=== PATIENT | female | born 1955 | race Caucasian/White ===

== ENCOUNTER 2016-06-20 15:42 | Inpatient (IN) | payer OTHER ==
[2016-06-20 18:12] VITALS: BMI 19.3
[2016-06-20] MEDS ORDERED: P-EPHED 60MG/TRIPROLIDI 2.5MG TABLET PO PRN (19:16)
[2016-06-20] MEDS ORDERED: MAGNESIUM HYDROX 2400MG/30ML ORAL SUSPENSION 30 ML CUP PO PRN (19:16)
[2016-06-20] MEDS ORDERED: LOPERAMIDE HCL 2 MG CAPSULE PO PRN (19:16)
[2016-06-20] MEDS ORDERED: chlordiazePOXIDE HCL 25 MG CAPSULE PO PRN (19:16)
[2016-06-20] MEDS ORDERED: guaiFENesin/D-METHORPHAN HB 10 ML UNIT-DOSE CUPS PO PRN (19:16)
[2016-06-20] MEDS ORDERED: ACETAMINOPHEN 325 MG TABLET (FP) PO PRN (19:16)
[2016-06-20] MEDS ORDERED: NICOTINE POLACRILEX 2 MG GUM BUC PRN (19:16)
[2016-06-20] MEDS ORDERED: IBUPROFEN 400 MG TABLET (FP) PO PRN (19:16)
[2016-06-20] MEDS ORDERED: MENTHOL/PHENOL 1 EACH UD MM PRN (19:16)
[2016-06-20] MEDS ORDERED: chlordiazePOXIDE HCL 25 MG CAPSULE PO ONE (19:16)
[2016-06-20] MEDS ORDERED: MAG HYDROX/AL HYDROX/SIMETH 30 ML UNIT-DOSE CUP PO PRN (19:16)
[2016-06-20] MEDS ORDERED: MAGNESIUM CITRATE 300 ML BOTTLE PO PRN (19:16)
--- NOTE | 2016-06-20 19:16 | HP ---
CIWA Score - CIWA Score Nausea/Vomitin-Mild Nausea/No Vomiting Muscle Tremors: 4-Moderate,w/Arms Extend Anxiety: 4-Mod. Anxious/Guarded Agitation: 4-Moderately Restless Paroxysmal Sweats: 1-Minimal Palms Moist Orientation: 2-Disoriented Date<2 days Tacttile Disturbances: 0-None Auditory Disturbances: 0-None Visual Disturbances: 0-None Headache: 0-None Present CIWA-Ar Total Score: 16 Admission ROS S - HPI Chief Complaint: WITHDRAWAL SX Allergies/Adverse Reactions: Allergies Allergy/AdvReac Type Severity Reaction Status Date / Time Penicillins Allergy Severe Hives Verified 06/20/16 18:26 History of Present Illness: 60 YEARS OLD FEMALE WITH LONG HISTORY OF ALCOHOL NICOTINE DEPENDENCE, DENIES MEDICAL ISSUE DENIES MENTAL ILLNESS IS ADMITTED TO DETOX Exam Limitations: No Limitations - Ebola screening Have you traveled outside of the country in the last 21 days: No Have you had contact with anyone from an Ebola affected area: No Have you been sick,other than usual withdrawal symptoms: No Do you have a fever: No - Review of Systems Constitutional: Chills, Loss of Appetite, Unintentional Wgt. Loss, Unexplained wgt Loss EENT: reports: No Symptoms Reported Respiratory: reports: No Symptoms reported Cardiac: reports: No Symptoms Reported GI: reports: Nausea, Poor Appetite, Poor Fluid Intake, Abdominal cramping : reports: No Symptoms Reported Musculoskeletal: reports: No Symptoms Reported Integumentary: reports: Pruritus Neuro: reports: Tremors Endocrine: reports: No Symptoms Reported Hematology: reports: No Symptoms Reported Psychiatric: reports: Judgement Intact, Mood/Affect Appropiate Other Systems: Reviewed and Negative Patient History - Patient Medical History Hx Anemia: No Hx Asthma: No Hx Chronic Obstructive Pulmonary Disease (COPD): No Hx Cancer: No Hx Cardiac Disorders: No Hx Congestive Heart Failure: No Hx Hypertension: No Hx Hypercholesterolemia: No Hx Pacemaker: No HX Cerebrovascular Accident: No Hx Seizures: No Hx Dementia: No Hx Diabetes: No Hx Gastrointestinal Disorders: No Hx Liver Disease: No Hx Genitourinary Disorders: No Hx Sexually Transmitted Disorders: No Hx Renal Disease (ESRD): No Hx Thyroid Disease: No Hx Human Immunodeficiency Virus (HIV): No (last 2010 negative) Hx Hepatitis C: No Hx Depression: No Hx Suicide Attempt: No Hx Bipolar Disorder: No Hx Schizophrenia: No - Patient Surgical History Past Surgical History: Yes Hx Neurologic Surgery: No Hx Cataract Extraction: No Hx Cardiac Surgery: No Hx Lung Surgery: No Hx Breast Surgery: No Hx Breast Biopsy: No Hx Abdominal Surgery: No Hx Appendectomy: No Hx Cholecystectomy: No Hx Genitourinary Surgery: No Hx Section: Yes (X2) Hx Orthopedic Surgery: No Hx Hysterectomy: No Anesthesia Reaction: No - PPD History Previous Implant?: Yes Documented Results: Negative w/proof Implanted On Prior [facility] Admission?: Yes Date: 03/03/16 Results: 0 mm PPD to be Administered?: No - Reproductive History Patient is a Female of Child Bearing Age (11 -55 yrs old): No Patient : No - Smoking Cessation Smoking history: Current every day smoker Have you smoked in the past 12 months: Yes Aproximately how many cigarettes per day: 10 Cigars Per Day: 0 Hx Chewing Tobacco Use: No Initiated information on smoking cessation: Yes 'Breaking Loose' booklet given: 06/20/16 - Substance & Tx. History Hx Alcohol Use: Yes Hx Substance Use: No Substance Use Type: Alcohol Hx Substance Use Treatment: Yes - Substances Abused Alcohol Route: Oral Frequency: Daily Amount used: VODKA 1 PINT Age of first use: 16 Date of Last Use: 06/20/16 Family Disease History - Family Disease History Family Disease History: CA: Father (), Other: Mother ( ALCOHOL) Admission Physical Exam S - Vital Signs Vital Signs: Vital Signs - 24 hr 06/20/16 18:11 Temperature 97.2 F L Pulse Rate 94 H Respiratory 20 Rate Blood Pressure 145/82 - Physical General Appearance: Yes: Appropriately Dressed, Alcohol on Breath, Thin, Tremorous, Irritable, Sweating, Anxious HEENTM: Yes: Hearing grossly Normal, Normal ENT Inspection, Normocephalic, Normal Voice Respiratory: Yes: Chest Non-Tender, Lungs Clear, Normal Breath Sounds, No Respiratory Distress, No Accessory Muscle Use Neck: Yes: Supple, Trachea in good position Breast: Yes: Breasts Symetrical Cardiology: Yes: Regular Rhythm, S1, S2, Tachycardia Abdominal: Yes: Non Tender, Soft Genitourinary: Yes: Within Normal Limits Back: Yes: Normal Inspection Musculoskeletal: Yes: full range of Motion, Gait Steady Extremities: Yes: Normal Range of Motion, Non-Tender, Tremors Neurological: Yes: Alert, Motor Strength 5/5, Normal Mood/Affect, Normal Response Integumentary: Yes: Warm, Erythema (LEFT LEG) Lymphatic: Yes: Within Normal Limits - Diagnostic (1) Alcohol dependence with uncomplicated withdrawal Current Visit: Yes Status: Acute (2) Nicotine dependence Current Visit: Yes Status: Acute Qualifiers: Nicotine product type: cigarettes Substance use status: in withdrawal Qualified Code(s): F17.213 - Nicotine dependence, cigarettes, with withdrawal (3) Weight loss Current Visit: Yes Status: Acute (4) Abrasion Current Visit: Yes Status: Acute Comment: LEFT LEG Cleared for Admission S - Detox or Rehab [facility] Level of Care: Medically Managed Detox Regimen/Protocol: Librium [facility] Breath Alcohol Content Breath Alcohol Content: 0.060 Urine Pregancy Test - Result Urine Test Results: Negative- NO Line Present Urine Drug Screen - Results Drug Screen Negative: Yes
[2016-06-20] MEDS: chlordiazePOXIDE HCL 25 MG CAPSULE PO SCH (22:45)
[2016-06-20] MEDS: THIAMINE HCL 100 MG TABLET (FP) PO SCH (22:45)
[2016-06-20] MEDS: diphenhydrAMINE HCL 50 MG CAPSULE PO PRN (22:48)
[2016-06-21] MEDS: chlordiazePOXIDE HCL 25 MG CAPSULE PO SCH ×4 (05:51→22:41)
[2016-06-21 09:57] LABS: URINE APPEARANCE SLCLOUDY; URINE BILIRUBIN NEGATIVE (NEGATIVE); URINE BLOOD NEGATIVE (NEGATIVE); URINE COLOR YELLOW; URINE GLUCOSE (UA) NEGATIVE (NEGATIVE); URINE KETONE NEGATIVE (NEGATIVE); URINE NITRITE NEGATIVE (NEGATIVE); URINE PROTEIN NEGATIVE (NEGATIVE); URINE UROBILINOGEN NEGATIVE E.U./dl (0.2-1.0)
[2016-06-21 09:58] LABS: URINE LEUK ESTERASE 2+ (NEGATIVE)
[2016-06-21 10:04] LABS: MCH 34.1 pg (25.7-33.7); MCHC 34.3 g/dl (32.0-36.0); MEAN CELL VOLUME 99.6 fl (80-96); MEAN PLT VOLUME 6.5 fl (7.5-11.1); PLATELET COUNT 189 K/MM3 (134-434); RDW 14.6 % (11.6-15.6); WHITE BLOOD COUNT 4.9 K/mm3 (4.0-10.0)
[2016-06-21 10:12] LABS: ALBUMIN 3.6 g/dl (3.4-5.0); BILIRUBIN,TOTAL 0.8 mg/dL (0.2-1.0); CALCIUM 9.1 mg/dL (8.5-10.1); CREATININE 1.7 mg/dL (0.55-1.02); TOT PROT 6.6 g/dl (6.4-8.2)
[2016-06-21 10:14] LABS: URINE BACTERIA RARE /hpf (NONE SEEN); URINE HYALINE CAST 19 /lpf; URINE MUCUS RARE; URINE RBC 5 /hpf (0-3); URINE WBC 36 /hpf (3-5)
[2016-06-21] MEDS: PRENATAL VITAMINS W/ FOLIC ACID TABLET (FP) PO SCH (10:37)
[2016-06-21] MEDS: NICOTINE 14 MG/24 HOURS TOPICAL PATCH TD SCH (10:38)
--- NOTE | 2016-06-21 12:20 | PN ---
S CIWA - CIWA Score Nausea/Vomitin Muscle Tremors: 3 Anxiety: 3 Agitation: 2 Paroxysmal Sweats: 3 Orientation: 0-Oriented Tacttile Disturbances: 2-Mild Itch/Numbness/Burn Auditory Disturbances: 0-None Visual Disturbances: 0-None Headache: 0-None Present CIWA-Ar Total Score: 15 BHS Progress Note (SOAP) Subjective: interrupted sleep, sweats, shakes Objective: 06/21/16 12:19 Vital Signs Temperature 98.1 F 06/21/16 10:19 Pulse Rate 79 06/21/16 10:19 Respiratory Rate 20 06/21/16 10:19 Blood Pressure 118/64 06/21/16 10:19 O2 Sat by Pulse Oximetry (%) Laboratory Tests 06/21/16 06/21/16 06/21/16 06:30 07:00 08:30 WBC 4.9 RBC 3.08 L Hgb 10.5 L Hct 30.6 L MCV 99.6 H MCHC 34.3 RDW 14.6 D Plt Count 189 D MPV 6.5 L D Sodium 140 Potassium 4.3 Chloride 107 Carbon Dioxide 23 Anion Gap 10 BUN 36 H D Creatinine 1.7 H D Creat Clearance w eGFR 30.87 Random Glucose 111 H Calcium 9.1 Total Bilirubin 0.8 D AST 47 H D ALT 27 D Alkaline Phosphatase 116 D Total Protein 6.6 Albumin 3.6 Urine Color Yellow Urine Appearance Slcloudy Urine pH 6.0 Ur Specific [place] 1.016 Urine Protein Negative Urine Glucose (UA) Negative Urine Ketones Negative Urine Blood Negative Urine Nitrite Negative Urine Bilirubin Negative Urine Urobilinogen Negative Ur Leukocyte Esterase 2+ H Urine RBC 5 Urine WBC 36 Ur Epithelial Cells Few Urine Bacteria Rare Hyaline Casts 19 Urine Mucus Rare pt aox3 in nad ambulating Assessment: 06/21/16 12:20 withdrawal sxs Plan: cont. detox increase fluids
--- NOTE | 2016-06-21 12:54 | EKG ---
Test Reason : Blood Pressure : / mmHG Vent. Rate : 094 BPM Atrial Rate : 094 BPM P-R Int : 162 ms QRS Dur : 074 ms QT Int : 378 ms P-R-T Axes : 066 056 067 degrees QTc Int : 472 ms NORMAL SINUS RHYTHM NORMAL ECG NO PREVIOUS ECGS AVAILABLE Confirmed by SUMI SALAZAR, CIRA ([id number]) on 06/21/2016 12:53:32 PM Referred By: Bal Faith Confirmed By:CIRA JONAS MD
[2016-06-21] MEDS: THIAMINE HCL 100 MG TABLET (FP) PO SCH (22:41)
[2016-06-21] MEDS: diphenhydrAMINE HCL 50 MG CAPSULE PO PRN (22:41)
[2016-06-22] MEDS: chlordiazePOXIDE HCL 25 MG CAPSULE PO SCH ×3 (05:34→17:53)
[2016-06-22] MEDS: PRENATAL VITAMINS W/ FOLIC ACID TABLET (FP) PO SCH (10:26)
[2016-06-22] MEDS: NICOTINE 14 MG/24 HOURS TOPICAL PATCH TD SCH (10:27)
--- NOTE | 2016-06-22 10:58 | PN ---
[facility] CIWA - CIWA Score Nausea/Vomitin-No Nausea/No Vomiting Muscle Tremors: 4-Moderate,w/Arms Extend Anxiety: 3 Agitation: 3 Paroxysmal Sweats: 3 Orientation: 0-Oriented Tacttile Disturbances: 0-None Auditory Disturbances: 0-None Visual Disturbances: 0-None Headache: 0-None Present CIWA-Ar Total Score: 13 S Progress Note (SOAP) Subjective: sweats shakes interrupted sleep agitation anxiety Objective: 06/22/16 10:57 Vital Signs Temperature 97.7 F 06/22/16 09:51 Pulse Rate 80 06/22/16 09:51 Respiratory Rate 16 06/22/16 09:51 Blood Pressure 127/78 06/22/16 09:51 O2 Sat by Pulse Oximetry (%) Laboratory Tests 06/20/16 06/21/16 06/21/16 07:00 06:30 07:00 WBC 4.9 RBC 3.08 L Hgb 10.5 L Hct 30.6 L MCV 99.6 H MCHC 34.3 RDW 14.6 D Plt Count 189 D MPV 6.5 L D Sodium 140 Potassium 4.3 Chloride 107 Carbon Dioxide 23 Anion Gap 10 BUN 36 H D Creatinine 1.7 H D Creat Clearance w eGFR 30.87 Random Glucose 111 H Calcium 9.1 Total Bilirubin 0.8 D AST 47 H D ALT 27 D Alkaline Phosphatase 116 D Total Protein 6.6 Albumin 3.6 Urine Color Urine Appearance Urine pH Ur Specific [place] Urine Protein Urine Glucose (UA) Urine Ketones Urine Blood Urine Nitrite Urine Bilirubin Urine Urobilinogen Ur Leukocyte Esterase Urine RBC Urine WBC Ur Epithelial Cells Urine Bacteria Hyaline Casts Urine Mucus RPR Titer Hepatitis C Antibody 0.1 06/21/16 06/21/16 07:00 08:30 WBC RBC Hgb Hct MCV MCHC RDW Plt Count MPV Sodium Potassium Chloride Carbon Dioxide Anion Gap BUN Creatinine Creat Clearance w eGFR Random Glucose Calcium Total Bilirubin AST ALT Alkaline Phosphatase Total Protein Albumin Urine Color Yellow Urine Appearance Slcloudy Urine pH 6.0 Ur Specific [place] 1.016 Urine Protein Negative Urine Glucose (UA) Negative Urine Ketones Negative Urine Blood Negative Urine Nitrite Negative Urine Bilirubin Negative Urine Urobilinogen Negative Ur Leukocyte Esterase 2+ H Urine RBC 5 Urine WBC 36 Ur Epithelial Cells Few Urine Bacteria Rare Hyaline Casts 19 Urine Mucus Rare RPR Titer Nonreactive Hepatitis C Antibody awake/alert ambulating no acute distress Assessment: 06/22/16 10:58 withdrawal sx Plan: continue detox increase fluids
[2016-06-22] MEDS: chlordiazePOXIDE 5 MG CAPSULE PO SCH (22:21)
[2016-06-22] MEDS: THIAMINE HCL 100 MG TABLET (FP) PO SCH (22:21)
[2016-06-22] MEDS: hydrOXYzine PAMOATE 50 MG CAPSULE (FP) PO PRN (22:22)
[2016-06-23] MEDS: chlordiazePOXIDE 5 MG CAPSULE PO SCH ×3 (05:28→18:11)
[2016-06-23] MEDS: NICOTINE 14 MG/24 HOURS TOPICAL PATCH TD SCH (10:51)
[2016-06-23] MEDS: PRENATAL VITAMINS W/ FOLIC ACID TABLET (FP) PO SCH (10:52)
--- NOTE | 2016-06-23 11:25 | PN ---
BHS Progress Note (SOAP) Subjective: sweats irritable Objective: 06/23/16 11:25 Vital Signs Temperature 97.9 F 06/23/16 10:00 Pulse Rate 84 06/23/16 10:00 Respiratory Rate 16 06/23/16 10:00 Blood Pressure 98/69 06/23/16 10:00 O2 Sat by Pulse Oximetry (%) awake/alert ambulating no acute distress Assessment: 06/23/16 11:25 withdrawal sx Plan: continue detox increase fluids d/c in am
[2016-06-23] MEDS: hydrOXYzine PAMOATE 50 MG CAPSULE (FP) PO PRN (22:40)
[2016-06-23] MEDS: THIAMINE HCL 100 MG TABLET (FP) PO SCH (22:40)
[2016-06-23] MEDS: chlordiazePOXIDE HCL 10 MG CAPSULE PO SCH (22:40)
[2016-06-24] MEDS: chlordiazePOXIDE HCL 10 MG CAPSULE PO SCH ×2 (06:45→10:55)
[2016-06-24 08:05] VITALS: TEMP 97.7
--- NOTE | 2016-06-24 10:26 | DS ---
[facility] Detox Discharge Summary Admission Date: 06/20/16 Discharge Date: 06/24/16 - History Present History: Alcohol Dependence Pertinent Past History: weight loss - Physical Exam Results Vital Signs: Vital Signs Temperature 97.7 F 06/24/16 06:00 Pulse Rate 65 06/24/16 06:00 Respiratory Rate 18 06/24/16 06:00 Blood Pressure 126/66 06/24/16 06:00 O2 Sat by Pulse Oximetry (%) Pertinent Admission Physical Exam Findings: Withdrawal sx. Laboratory Last Values WBC 4.9 K/mm3 (4.0-10.0) 06/21/16 06:30 RBC 3.08 M/mm3 (3.60-5.2) L 06/21/16 06:30 Hgb 10.5 GM/dL (10.7-15.3) L 06/21/16 06:30 Hct 30.6 % (32.4-45.2) L 06/21/16 06:30 MCV 99.6 fl (80-96) H 06/21/16 06:30 MCHC 34.3 g/dl (32.0-36.0) 06/21/16 06:30 RDW 14.6 % (11.6-15.6) D 06/21/16 06:30 Plt Count 189 K/MM3 (134-434) D 06/21/16 06:30 MPV 6.5 fl (7.5-11.1) L D 06/21/16 06:30 Sodium 140 mmol/L (136-145) 06/21/16 07:00 Potassium 4.3 mmol/L (3.5-5.1) 06/21/16 07:00 Chloride 107 mmol/L (98-107) 06/21/16 07:00 Carbon Dioxide 23 mmol/L (21-32) 06/21/16 07:00 Anion Gap 10 (8-16) 06/21/16 07:00 BUN 36 mg/dL (7-18) H D 06/21/16 07:00 Creatinine 1.7 mg/dL (0.55-1.02) H D 06/21/16 07:00 Creat Clearance w eGFR 30.87 (>60) 06/21/16 07:00 Random Glucose 111 mg/dL (74-106) H 06/21/16 07:00 Calcium 9.1 mg/dL (8.5-10.1) 06/21/16 07:00 Total Bilirubin 0.8 mg/dL (0.2-1.0) D 06/21/16 07:00 AST 47 U/L (15-37) H D 06/21/16 07:00 ALT 27 U/L (12-78) D 06/21/16 07:00 Alkaline Phosphatase 116 U/L (45-117) D 06/21/16 07:00 Total Protein 6.6 g/dl (6.4-8.2) 06/21/16 07:00 Albumin 3.6 g/dl (3.4-5.0) 06/21/16 07:00 Urine Color Yellow 06/21/16 08:30 Urine Appearance Slcloudy 06/21/16 08:30 Urine pH 6.0 (5.0-8.0) 06/21/16 08:30 Ur Specific [place] 1.016 (1.001-1.035) 06/21/16 08:30 Urine Protein Negative (NEGATIVE) 06/21/16 08:30 Urine Glucose (UA) Negative (NEGATIVE) 06/21/16 08:30 Urine Ketones Negative (NEGATIVE) 06/21/16 08:30 Urine Blood Negative (NEGATIVE) 06/21/16 08:30 Urine Nitrite Negative (NEGATIVE) 06/21/16 08:30 Urine Bilirubin Negative (NEGATIVE) 06/21/16 08:30 Urine Urobilinogen Negative E.U./dl (0.2-1.0) 06/21/16 08:30 Ur Leukocyte Esterase 2+ (NEGATIVE) H 06/21/16 08:30 Urine RBC 5 /hpf (0-3) 06/21/16 08:30 Urine WBC 36 /hpf (3-5) 06/21/16 08:30 Ur Epithelial Cells Few /hpf (FEW) 06/21/16 08:30 Urine Bacteria Rare /hpf (NONE SEEN) 06/21/16 08:30 Hyaline Casts 19 /lpf 06/21/16 08:30 Urine Mucus Rare 06/21/16 08:30 RPR Titer Nonreactive (NONREACTIVE) 06/21/16 07:00 Hepatitis C Antibody 0.1 s/co ratio (0.0-0.9) 06/20/16 07:00 labs noted - Treatment Hospital Course: Detox Protocol Followed, Detoxed Safely, Responded well, Discharged Condition Good, Rehab Referral Accepted Patient has Accepted a Rehab Referral to: [facility] - Medication Discharge Medications: Ambulatory Orders NK [No Known Home Medication] 03/01/16 - Diagnosis (1) Alcohol dependence with uncomplicated withdrawal Current Visit: Yes Status: Acute (2) Nicotine dependence Current Visit: Yes Status: Acute Qualifiers: Nicotine product type: cigarettes Substance use status: in withdrawal Qualified Code(s): F17.213 - Nicotine dependence, cigarettes, with withdrawal - AMA Did Patient Leave Against Medical Advice: No
[2016-06-24] MEDS: NICOTINE 14 MG/24 HOURS TOPICAL PATCH TD SCH (10:54)
[2016-06-24] MEDS: PRENATAL VITAMINS W/ FOLIC ACID TABLET (FP) PO SCH (10:54)
[2016-06-24 11:40] VITALS: BP 125/78; PULSE 76
== END 2016-06-24 12:24 | disposition other institution (70) | DRG 775 ==
LOC: YASAS 15:42 → Y6N 18:51
PROVIDERS: ADMIT Internal Medicine Addiction Medicine; ATTEND Internal Medicine Addiction Medicine
PROC: HZ2ZZZZ Detoxification Services for Substance Abuse Treatment (ICD-10-PCS; principal; 2016-06-24)
DX: F10.230 Alcohol dependence with withdrawal, uncomplicated (principal); F17.210 Nicotine dependence, cigarettes, uncomplicated; L29.9 Pruritus, unspecified; S80.812A Abrasion, left lower leg, initial encounter; X58.XXXA Exposure to other specified factors, initial encounter; Y93.9 Activity, unspecified; Y92.9 Unspecified place or not applicable; R63.4 Abnormal weight loss; Z68.1 Body mass index [BMI] 19.9 or less, adult
CPT/HCPCS: 36415; 80053; 81003; 81015; 85027; 86593; 93005; 93010

== ENCOUNTER 2016-06-24 13:04 | Inpatient (IN) | payer OTHER ==
[2016-06-24 13:23] VITALS: BMI 23.8
[2016-06-24] MEDS ORDERED: MAG HYDROX/AL HYDROX/SIMETH 30 ML UNIT-DOSE CUP PO PRN (14:22)
[2016-06-24] MEDS ORDERED: LOPERAMIDE HCL 2 MG CAPSULE PO PRN (14:22)
[2016-06-24] MEDS ORDERED: MAGNESIUM CITRATE 300 ML BOTTLE PO PRN (14:22)
[2016-06-24] MEDS ORDERED: ACETAMINOPHEN 325 MG TABLET (FP) PO PRN (14:22)
[2016-06-24] MEDS ORDERED: IBUPROFEN 400 MG TABLET (FP) PO PRN (14:22)
[2016-06-24] MEDS ORDERED: MAGNESIUM HYDROX 2400MG/30ML ORAL SUSPENSION 30 ML CUP PO PRN (14:22)
--- NOTE | 2016-06-24 14:23 | HP ---
MARIANNE SALAZAR Rehab Assess/Revision - Admission History Admitted to Rehab from: [facility] [place] Date of Admission to Rehab: 06/24/16 - Vital signs Vital Signs: Vital Signs Period Temp Pulse Resp BP Sys/[place] Pulse Ox Last 24 Hr 97.7 F 88 20 111/79 - Findings Detox History & Physical reviewed: Yes Concur with findings: Yes
[2016-06-24] MEDS ORDERED: diphenhydrAMINE HCL 50 MG CAPSULE PO PRN (22:00)
[2016-06-24] MEDS: hydrOXYzine PAMOATE 25 MG CAPSULE (FP) PO PRN (22:06)
[2016-06-24] MEDS: THIAMINE HCL 100 MG TABLET (FP) PO SCH (22:06)
[2016-06-25] MEDS: PRENATAL VITAMINS W/ FOLIC ACID TABLET (FP) PO SCH (09:40)
[2016-06-25] MEDS: NICOTINE 21 MG/24 HOURS TOPICAL PATCH TD SCH (09:40)
[2016-06-25 11:49] LABS: HIV 1 & 2 AB NEGATIVE; HIV 1 AGp24 NEGATIVE
[2016-06-25] MEDS: hydrOXYzine PAMOATE 25 MG CAPSULE (FP) PO PRN (20:02)
[2016-06-25] MEDS: THIAMINE HCL 100 MG TABLET (FP) PO SCH (21:10)
[2016-06-26] MEDS: hydrOXYzine PAMOATE 25 MG CAPSULE (FP) PO PRN ×3 (00:29→22:18)
--- NOTE | 2016-06-26 06:59 | HP ---
Psychiatrist Admission - Data Date of interview: 06/26/16 Admission source: 6N Identifying data: This is the first [facility] admission for this 60 years old female, mother of 2 children, unemployed on public assistance, living in supportive housing seeking rehab treatment for alcohol Medical History: Significant for S/P X2 Psychiatric History: Denies history of previous psychiatric treatment Physical/Sexual Abuse/Trauma History: Denies emotional, physical, sexual as well as DV relationship Additional Comment: Reports history of 2 previous arrestsincluding one felony conviction. Denies being on probation/parole at present Vital Signs: Vital Signs - 24 hr 06/26/16 06/26/16 03:28 06:53 Temperature 97.8 F Pulse Rate 86 Respiratory 16 18 Rate Blood Pressure 110/69 Allergies/Adverse Reactions: Allergies Allergy/AdvReac Type Severity Reaction Status Date / Time Penicillins Allergy Severe Hives Verified 06/24/16 13:10 Date of last physical exam: 06/24/16 Concur with the findings of this exam: Yes - Substance Abuse/Tx History Hx Alcohol Use: Yes Hx Substance Use: No Substance Use Type: Alcohol (Started drinking alcohol at age 60, consumes one pint of vodka daily. Last drink on 06/20/16) Hx Substance Use Treatment: Yes (4 previous inpt detox and 3 inpt rehab) - Admission Criteria Previous failed treatment: No Poor recovery environment: Yes Comorbidities: Yes Lacks judgement: Yes Mental Status Exam - Mental Status Exam Alert and Oriented to: Time, Place, Person Cognitive Function: Fair Patient Appearance: Well Groomed Mood: Hopeful, Euthymic Patient Behavior: Cooperative Speech Pattern: Clear Voice Loudness: Normal Thought Process: Intact Thought Disorder: Not Present Hallucinations: Denies Suicidal Ideation: Denies Homicidal Ideation: Denies Insight/Judgement: Fair Sleep: Well Appetite: Good Muscle strength/Tone: Normal Gait/Station: Normal Psychiatric Findings - Problem List ([place] 1, 2,3) (1) Alcohol dependence with uncomplicated withdrawal Current Visit: No Status: Acute (2) Nicotine dependence Current Visit: No Status: Acute Qualifiers: Nicotine product type: cigarettes Substance use status: in withdrawal Qualified Code(s): F17.213 - Nicotine dependence, cigarettes, with withdrawal - Initial Treatment Plan Initial Treatment Plan: Monitor progress
[2016-06-26] MEDS: NICOTINE 21 MG/24 HOURS TOPICAL PATCH TD SCH (10:04)
[2016-06-26] MEDS: PRENATAL VITAMINS W/ FOLIC ACID TABLET (FP) PO SCH (10:04)
[2016-06-26] MEDS: THIAMINE HCL 100 MG TABLET (FP) PO SCH (21:40)
[2016-06-27] MEDS: hydrOXYzine PAMOATE 25 MG CAPSULE (FP) PO PRN ×3 (02:42→21:22)
[2016-06-27] MEDS: P-EPHED 60MG/TRIPROLIDI 2.5MG TABLET PO PRN ×3 (07:39→21:22)
[2016-06-27] MEDS: guaiFENesin/D-METHORPHAN HB 10 ML UNIT-DOSE CUPS PO PRN ×3 (07:39→21:23)
[2016-06-27] MEDS: PRENATAL VITAMINS W/ FOLIC ACID TABLET (FP) PO SCH (09:58)
[2016-06-27] MEDS: NICOTINE 21 MG/24 HOURS TOPICAL PATCH TD SCH (09:58)
[2016-06-27] MEDS: MENTHOL/PHENOL 1 EACH UD MM PRN (21:22)
[2016-06-27] MEDS: THIAMINE HCL 100 MG TABLET (FP) PO SCH (21:22)
[2016-06-28] MEDS: P-EPHED 60MG/TRIPROLIDI 2.5MG TABLET PO PRN ×2 (05:55→21:31)
[2016-06-28] MEDS: guaiFENesin/D-METHORPHAN HB 10 ML UNIT-DOSE CUPS PO PRN ×2 (05:55→15:28)
[2016-06-28] MEDS: PRENATAL VITAMINS W/ FOLIC ACID TABLET (FP) PO SCH (09:46)
[2016-06-28] MEDS: NICOTINE 21 MG/24 HOURS TOPICAL PATCH TD SCH (09:46)
[2016-06-28] MEDS: hydrOXYzine PAMOATE 25 MG CAPSULE (FP) PO PRN ×2 (17:58→21:29)
[2016-06-28] MEDS: THIAMINE HCL 100 MG TABLET (FP) PO SCH (21:29)
[2016-06-29] MEDS: PRENATAL VITAMINS W/ FOLIC ACID TABLET (FP) PO SCH (09:40)
[2016-06-29] MEDS: guaiFENesin/D-METHORPHAN HB 10 ML UNIT-DOSE CUPS PO PRN ×2 (09:40→17:45)
[2016-06-29] MEDS: NICOTINE 21 MG/24 HOURS TOPICAL PATCH TD SCH (09:41)
[2016-06-29] MEDS: P-EPHED 60MG/TRIPROLIDI 2.5MG TABLET PO PRN ×2 (09:43→15:58)
[2016-06-29] MEDS: hydrOXYzine PAMOATE 25 MG CAPSULE (FP) PO PRN ×2 (17:45→21:20)
[2016-06-29] MEDS: THIAMINE HCL 100 MG TABLET (FP) PO SCH (21:20)
[2016-06-29] MEDS: MENTHOL/PHENOL 1 EACH UD MM PRN (21:21)
[2016-06-30] MEDS: PRENATAL VITAMINS W/ FOLIC ACID TABLET (FP) PO SCH (10:05)
[2016-06-30] MEDS: guaiFENesin/D-METHORPHAN HB 10 ML UNIT-DOSE CUPS PO PRN ×2 (10:06→17:12)
[2016-06-30] MEDS: NICOTINE 21 MG/24 HOURS TOPICAL PATCH TD SCH (10:06)
[2016-06-30] MEDS: P-EPHED 60MG/TRIPROLIDI 2.5MG TABLET PO PRN ×2 (10:06→17:11)
[2016-06-30] MEDS: hydrOXYzine PAMOATE 25 MG CAPSULE (FP) PO PRN ×2 (17:11→21:17)
[2016-06-30] MEDS: THIAMINE HCL 100 MG TABLET (FP) PO SCH (21:17)
[2016-07-01] MEDS: PRENATAL VITAMINS W/ FOLIC ACID TABLET (FP) PO SCH (09:44)
[2016-07-01] MEDS: NICOTINE 21 MG/24 HOURS TOPICAL PATCH TD SCH (09:45)
[2016-07-01] MEDS: NICOTINE POLACRILEX 2 MG GUM BUC PRN ×3 (09:45→22:15)
[2016-07-01] MEDS: guaiFENesin/D-METHORPHAN HB 10 ML UNIT-DOSE CUPS PO PRN (09:45)
[2016-07-01] MEDS: P-EPHED 60MG/TRIPROLIDI 2.5MG TABLET PO PRN (09:45)
[2016-07-01] MEDS: hydrOXYzine PAMOATE 25 MG CAPSULE (FP) PO PRN ×2 (18:17→21:40)
[2016-07-01] MEDS: THIAMINE HCL 100 MG TABLET (FP) PO SCH (21:40)
[2016-07-02] MEDS: NICOTINE 21 MG/24 HOURS TOPICAL PATCH TD SCH (09:48)
[2016-07-02] MEDS: PRENATAL VITAMINS W/ FOLIC ACID TABLET (FP) PO SCH (09:48)
[2016-07-02] MEDS: NICOTINE POLACRILEX 2 MG GUM BUC PRN ×3 (09:49→23:44)
[2016-07-02] MEDS: guaiFENesin/D-METHORPHAN HB 10 ML UNIT-DOSE CUPS PO PRN ×2 (10:03→21:33)
[2016-07-02] MEDS: P-EPHED 60MG/TRIPROLIDI 2.5MG TABLET PO PRN ×2 (10:04→21:34)
[2016-07-02] MEDS: hydrOXYzine PAMOATE 25 MG CAPSULE (FP) PO PRN (20:02)
[2016-07-02] MEDS: THIAMINE HCL 100 MG TABLET (FP) PO SCH (21:33)
[2016-07-03] MEDS: hydrOXYzine PAMOATE 25 MG CAPSULE (FP) PO PRN ×3 (00:32→19:40)
[2016-07-03] MEDS: PRENATAL VITAMINS W/ FOLIC ACID TABLET (FP) PO SCH (10:20)
[2016-07-03] MEDS: NICOTINE 21 MG/24 HOURS TOPICAL PATCH TD SCH (10:20)
[2016-07-03] MEDS: NICOTINE POLACRILEX 2 MG GUM BUC PRN ×2 (10:21→13:42)
[2016-07-03] MEDS: guaiFENesin/D-METHORPHAN HB 10 ML UNIT-DOSE CUPS PO PRN ×2 (10:22→22:00)
[2016-07-03] MEDS: THIAMINE HCL 100 MG TABLET (FP) PO SCH (21:59)
[2016-07-04] MEDS: NICOTINE 21 MG/24 HOURS TOPICAL PATCH TD SCH (10:01)
[2016-07-04] MEDS: PRENATAL VITAMINS W/ FOLIC ACID TABLET (FP) PO SCH (10:01)
[2016-07-04] MEDS: P-EPHED 60MG/TRIPROLIDI 2.5MG TABLET PO PRN ×2 (10:04→21:41)
[2016-07-04] MEDS: guaiFENesin/D-METHORPHAN HB 10 ML UNIT-DOSE CUPS PO PRN ×2 (10:04→21:41)
[2016-07-04] MEDS: NICOTINE POLACRILEX 2 MG GUM BUC PRN ×4 (10:09→21:42)
[2016-07-04] MEDS: hydrOXYzine PAMOATE 25 MG CAPSULE (FP) PO PRN ×4 (13:08→21:41)
[2016-07-04] MEDS: THIAMINE HCL 100 MG TABLET (FP) PO SCH (21:41)
[2016-07-05] MEDS: NICOTINE 21 MG/24 HOURS TOPICAL PATCH TD SCH (09:49)
[2016-07-05] MEDS: PRENATAL VITAMINS W/ FOLIC ACID TABLET (FP) PO SCH (09:49)
[2016-07-05] MEDS: guaiFENesin/D-METHORPHAN HB 10 ML UNIT-DOSE CUPS PO PRN ×2 (09:51→21:22)
[2016-07-05] MEDS: NICOTINE POLACRILEX 2 MG GUM BUC PRN ×3 (09:52→21:22)
[2016-07-05] MEDS: hydrOXYzine PAMOATE 25 MG CAPSULE (FP) PO PRN ×3 (12:07→21:21)
[2016-07-05] MEDS: THIAMINE HCL 100 MG TABLET (FP) PO SCH (21:21)
[2016-07-05] MEDS: P-EPHED 60MG/TRIPROLIDI 2.5MG TABLET PO PRN (21:21)
[2016-07-06 06:49] VITALS: TEMP 97.6
[2016-07-06] MEDS: guaiFENesin/D-METHORPHAN HB 10 ML UNIT-DOSE CUPS PO PRN ×2 (10:00→19:07)
[2016-07-06] MEDS: hydrOXYzine PAMOATE 25 MG CAPSULE (FP) PO PRN ×4 (10:00→23:03)
[2016-07-06] MEDS: PRENATAL VITAMINS W/ FOLIC ACID TABLET (FP) PO SCH (10:00)
[2016-07-06] MEDS: NICOTINE 21 MG/24 HOURS TOPICAL PATCH TD SCH (10:02)
[2016-07-06] MEDS: P-EPHED 60MG/TRIPROLIDI 2.5MG TABLET PO PRN ×2 (10:02→19:07)
[2016-07-06] MEDS: NICOTINE POLACRILEX 2 MG GUM BUC PRN ×3 (10:02→19:08)
--- NOTE | 2016-07-06 11:12 | HP ---
Psychiatrist Admission - Data Date of interview: 07/06/16 Admission source: Psychiatrist Discharge Note Identifying data: Patient addressing Alcohol Dependence comorbid with Nicotine Dependence Vital Signs: Vital Signs - 24 hr 07/06/16 07/06/16 07/06/16 00:30 03:30 06:48 Temperature 97.6 F Pulse Rate 73 Respiratory 18 18 18 Rate Blood Pressure 134/77 Allergies/Adverse Reactions: Allergies Allergy/AdvReac Type Severity Reaction Status Date / Time Penicillins Allergy Severe Hives Verified 06/24/16 13:10 Psychiatric Findings - Problem List ([place] 1, 2,3) (1) Alcohol dependence with uncomplicated withdrawal Current Visit: No Status: Acute (2) Nicotine dependence Current Visit: No Status: Acute Qualifiers: Nicotine product type: cigarettes Substance use status: in withdrawal Qualified Code(s): F17.213 - Nicotine dependence, cigarettes, with withdrawal
--- NOTE | 2016-07-06 11:17 | PN ---
Psychiatric Progress Note Vital Signs: Vital Signs Period Temp Pulse Resp BP Sys/[place] Pulse Ox Last 24 Hr 97.6 F 73 18-18 134/77 Date of Session: 07/06/16 Chief Complaint:: Psychiatrist Discharge Note HPI: Patient addressind Alcohol Dependence comorbid with Nicotine Dependence Current Medications: Active Medications Generic Name Dose Route Start Last Admin Trade Name Freq PRN Reason Stop Dose Admin Acetaminophen 650 mg 06/24/16 14:22 Tylenol - PO Q4H PRN FEVER OR PAIN Al Hydroxide/Mg Hydroxide 30 ml 06/24/16 14:22 Mylanta Oral Suspension - PO Q6H PRN DYSPEPSIA Diphenhydramine HCl 50 mg 06/24/16 22:00 Benadryl - PO HSMR1 PRN FOR ITCHING Eucalyptus/Menthol/Phenol/Sorbitol 1 each 06/24/16 14:22 06/29/16 21:21 Cepastat Lozenge - MM 1 each Q4H PRN Administration SORE THROAT Guaifenesin 10 ml 06/24/16 14:22 07/06/16 10:00 Robitussin Dm - PO 10 ml Q6H PRN Administration COUGH Hydroxyzine Pamoate 25 mg 06/24/16 21:29 07/06/16 10:00 Vistaril - PO 25 mg Q4H PRN Administration ANXIETY Ibuprofen 400 mg 06/24/16 14:22 Motrin - PO Q6H PRN PAIN Loperamide HCl 4 mg 06/24/16 14:22 Imodium - PO Q6H PRN DIARRHEA Magnesium Hydroxide 30 ml 06/24/16 14:22 Milk Of Magnesia - PO DAILY PRN CONSTIPATION Nicotine 21 mg 06/25/16 10:00 07/06/16 10:02 Nicoderm Patch - TD 21 mg DAILY LEANDER Administration Nicotine Polacrilex 2 mg 06/24/16 14:22 07/06/16 10:02 Nicorette Gum - BUC 2 mg Q2H PRN Administration NICOTINE REPLACEMENT RX Multivit/Folic Acid/Iron 1 tab 06/25/16 10:00 07/06/16 10:00 Vitamins (Sjr) - PO 1 tab DAILY LEANDER Administration Pseudoephedrine/Triprolidine 1 combo 06/24/16 14:22 07/06/16 10:02 Actifed - PO 1 combo TID PRN Administration NASAL CONGESTION Thiamine HCl 100 mg 06/24/16 22:00 07/05/16 21:21 Vitamin B1 - PO 100 mg HS LEANDER Administration Current Side Effect: No Lab tests ordered: Yes Lab tests reviewed: Yes Provider note:: Patient will complete this program on 07/07/16. She has met her treatment goals and will continue to address her issues in outpatient treatment at [facility]. 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 She is stable for discharge on 07/07/16 Total face to face time:: 25 Mental Status Exam - Mental Status Exam Alert and Oriented to: Time, Place, Person Cognitive Function: Fair Mood: Hopeful, Euthymic Affect: Appropriate Patient Behavior: Cooperative Speech Pattern: Clear Voice Loudness: Normal Thought Process: Intact, Goal Oriented Thought Disorder: Not Present Hallucinations: Denies Suicidal Ideation: Denies Insight/Judgement: Fair Sleep: Fair Appetite: Good Muscle strength/Tone: Normal Gait/Station: Normal Psychiatric Treatment Plan - Problem List (1) Alcohol dependence with uncomplicated withdrawal Current Visit: No (2) Nicotine dependence Current Visit: No Qualifiers: Nicotine product type: cigarettes Substance use status: in withdrawal Qualified Code(s): F17.213 - Nicotine dependence, cigarettes, with withdrawal Initial treatment plan: Patient will be discharged tomorrow and referred to [facility] for housing and outpatient treatment
[2016-07-06] MEDS: THIAMINE HCL 100 MG TABLET (FP) PO SCH (21:51)
[2016-07-07 07:01] VITALS: BP 132/88; PULSE 74
== END 2016-07-07 09:15 | disposition home or self-care (01) | DRG 772 ==
LOC: YASAS 13:04 → Y3W 13:06
PROVIDERS: ADMIT Psychiatry & Neurology Psychiatry; ATTEND Psychiatry & Neurology Psychiatry
PROC: HZ42ZZZ Group Counseling for Substance Abuse Treatment, Cognitive-Behavioral (ICD-10-PCS; principal; 2016-07-07)
DX: F10.230 Alcohol dependence with withdrawal, uncomplicated (principal); F17.213 Nicotine dependence, cigarettes, with withdrawal
CPT/HCPCS: 36415; 87389

== ENCOUNTER 2016-08-24 10:12 | Inpatient (IN) | payer OTHER ==
[2016-08-24 11:05] VITALS: BMI 25.0
--- NOTE | 2016-08-24 14:04 | HP ---
CIWA Score - CIWA Score Nausea/Vomitin-No Nausea/No Vomiting Muscle Tremors: 4-Moderate,w/Arms Extend Anxiety: 5 Agitation: 4-Moderately Restless Paroxysmal Sweats: 1-Minimal Palms Moist Orientation: 0-Oriented Tacttile Disturbances: 1-Very Mild Itch/Numbness Auditory Disturbances: 0-None Visual Disturbances: 0-None Headache: 0-None Present CIWA-Ar Total Score: 15 Admission ROS S - HPI Chief Complaint: DETOX TX FOR ALCOHOL DEPENDENCE Allergies/Adverse Reactions: Allergies Allergy/AdvReac Type Severity Reaction Status Date / Time Penicillins Allergy Severe Hives Verified 08/24/16 12:30 History of Present Illness: 61 Y/O FEMALE WITH A HX OF ALCOHOL DEPENDENCE SEEKING DETOX TX. PT STATES SHE REMEMBERS SHE LIVES IN A [facility] [place] [facility] AND THAT SHE WAS TAKEN TO A HOSPITAL FEW DAYS AGO FROM HER [facility] WHILE INTOXICATED AND DON'T REMEMBER WHERE SHE IS BUT REALIZING NOW. PT HAS A HX OF TX HERE, LAST WAS 2015. DENIES PMHx AND PPSYHx. ALERT O X 3. Exam Limitations: No Limitations - Ebola screening Have you traveled outside of the country in the last 21 days: No Have you had contact with anyone from an Ebola affected area: No Have you been sick,other than usual withdrawal symptoms: No - Review of Systems Constitutional: Chills, Night Sweats EENT: reports: Blurred Vision, Tearing, Nose Congestion Respiratory: reports: No Symptoms reported Cardiac: reports: Lightheadedness GI: reports: No Symptoms Reported : reports: Frequency Musculoskeletal: reports: No Symptoms Reported Integumentary: reports: Bruising, Dryness Neuro: reports: Unsteady Gait, Dizziness Endocrine: reports: No Symptoms Reported Hematology: reports: Anemia Psychiatric: reports: Orientated x3, Anxious Other Systems: Reviewed and Negative Patient History - Patient Medical History Hx Anemia: No Hx Asthma: No Hx Chronic Obstructive Pulmonary Disease (COPD): No Hx Cancer: No Hx Cardiac Disorders: No Hx Congestive Heart Failure: No Hx Hypertension: No Hx Hypercholesterolemia: No Hx Pacemaker: No HX Cerebrovascular Accident: No Hx Seizures: No Hx Dementia: No Hx Diabetes: No Hx Gastrointestinal Disorders: No Hx Liver Disease: No Hx Genitourinary Disorders: No Hx Sexually Transmitted Disorders: No Hx Renal Disease (ESRD): No Hx Thyroid Disease: No Hx Human Immunodeficiency Virus (HIV): No (NEGATIVE HX) Hx Hepatitis C: No Hx Depression: No Hx Suicide Attempt: No (DENIES) Hx Bipolar Disorder: No Hx Schizophrenia: No - Patient Surgical History Past Surgical History: Yes Hx Neurologic Surgery: No Hx Cataract Extraction: No Hx Cardiac Surgery: No Hx Lung Surgery: No Hx Breast Surgery: No Hx Breast Biopsy: No Hx Abdominal Surgery: No Hx Appendectomy: No Hx Cholecystectomy: No Hx Genitourinary Surgery: No Hx Section: Yes (X2) Hx Orthopedic Surgery: No Hx Hysterectomy: No Anesthesia Reaction: No - PPD History Previous Implant?: Yes Documented Results: Negative w/proof Implanted On Prior [facility] Admission?: Yes Date: 03/03/16 Results: 0 mm PPD to be Administered?: No - Reproductive History Patient is a Female of Child Bearing Age (11 -55 yrs old): No (POST MENOPAUSAL WOMAN) LMP comment: 5 YRS AGO Patient : No - Smoking Cessation Smoking history: Current every day smoker Have you smoked in the past 12 months: Yes Aproximately how many cigarettes per day: 10 Cigars Per Day: 0 Hx Chewing Tobacco Use: No Initiated information on smoking cessation: Yes 'Breaking Loose' booklet given: 08/24/16 - Substance & Tx. History Hx Alcohol Use: Yes (VODKA) Hx Substance Use: No Substance Use Type: Alcohol Hx Substance Use Treatment: Yes ([facility]) - Substances Abused Alcohol-vodka Route: Oral Frequency: Daily Amount used: 1 pt. Age of first use: 17 Date of Last Use: 08/23/16 Family Disease History - Family Disease History Family Disease History: CA: Father (), Other: Mother ( ALCOHOL) Admission Physical Exam S - Vital Signs Vital Signs: Vital Signs - 24 hr 08/24/16 11:01 Temperature 98 F Pulse Rate 65 Respiratory 20 Rate Blood Pressure 85/55 - Physical General Appearance: Yes: Moderate Distress, Alcohol on Breath, Intoxicated, Irritable, Anxious HEENTM: Yes: EOMI, Normocephalic, ERIC, Pharynx Normal Respiratory: Yes: Chest Non-Tender, Lungs Clear, Normal Breath Sounds, No Respiratory Distress Breast: Yes: Breast Exam Deferred Cardiology: Yes: Regular Rhythm, Regular Rate, S1, S2 Abdominal: Yes: Normal Bowel Sounds, Non Tender, Soft Genitourinary: Yes: Other (N/C) Back: Yes: Within Normal Limits Musculoskeletal: Yes: full range of Motion, Gait Steady Extremities: Yes: Normal Range of Motion, Non-Tender 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 NML intact, Fully Oriented, Alert, Motor Strength 5/5 Integumentary: Yes: Dry, Warm Lymphatic: Yes: Within Normal Limits - Diagnostic (1) Alcohol dependence with uncomplicated withdrawal Current Visit: Yes Status: Chronic (2) Nicotine dependence Current Visit: Yes Status: Chronic Qualifiers: Nicotine product type: cigarettes Substance use status: uncomplicated Qualified Code(s): F17.210 - Nicotine dependence, cigarettes, uncomplicated Cleared for Admission [facility] - Detox or Rehab [facility] Level of Care: Medically Managed Detox Regimen/Protocol: Librium [facility] Breath Alcohol Content Breath Alcohol Content: 0.047 Urine Pregancy Test - Result Urine Test Results: Negative- NO Line Present Urine Drug Screen - Results Drug Screen Negative: No Urine Drug Screen Results: BZO-Benzodiazepines
[2016-08-24] MEDS ORDERED: MENTHOL/PHENOL 1 EACH UD MM PRN (14:11)
[2016-08-24] MEDS ORDERED: MAGNESIUM CITRATE 300 ML BOTTLE PO PRN (14:11)
[2016-08-24] MEDS ORDERED: IBUPROFEN 400 MG TABLET (FP) PO PRN (14:11)
[2016-08-24] MEDS ORDERED: MAGNESIUM HYDROX 2400MG/30ML ORAL SUSPENSION 30 ML CUP PO PRN (14:11)
[2016-08-24] MEDS ORDERED: LOPERAMIDE HCL 2 MG CAPSULE PO PRN (14:11)
[2016-08-24] MEDS ORDERED: chlordiazePOXIDE HCL 25 MG CAPSULE PO PRN (14:11)
[2016-08-24] MEDS ORDERED: P-EPHED 60MG/TRIPROLIDI 2.5MG TABLET PO PRN (14:11)
[2016-08-24] MEDS ORDERED: guaiFENesin/D-METHORPHAN HB 10 ML UNIT-DOSE CUPS PO PRN (14:11)
[2016-08-24] MEDS ORDERED: ACETAMINOPHEN 325 MG TABLET (FP) PO PRN (14:11)
[2016-08-24] MEDS ORDERED: MAG HYDROX/AL HYDROX/SIMETH 30 ML UNIT-DOSE CUP PO PRN (14:11)
[2016-08-24] MEDS ORDERED: chlordiazePOXIDE HCL 25 MG CAPSULE PO ONE (14:39)
[2016-08-24] MEDS: NICOTINE 14 MG/24 HOURS TOPICAL PATCH TD SCH (15:11)
[2016-08-24] MEDS: NICOTINE POLACRILEX 2 MG GUM BUC PRN (15:55)
[2016-08-24] MEDS: hydrOXYzine PAMOATE 25 MG CAPSULE (FP) PO PRN (15:55)
[2016-08-24] MEDS: chlordiazePOXIDE HCL 25 MG CAPSULE PO SCH ×2 (17:18→22:44)
[2016-08-24] MEDS: THIAMINE HCL 100 MG TABLET (FP) PO SCH (22:44)
[2016-08-24] MEDS: diphenhydrAMINE HCL 50 MG CAPSULE PO PRN (22:44)
[2016-08-24 23:28] LABS: URINE APPEARANCE CLEAR; URINE BILIRUBIN NEGATIVE (NEGATIVE); URINE BLOOD NEGATIVE (NEGATIVE); URINE COLOR STRAW; URINE GLUCOSE (UA) NEGATIVE (NEGATIVE); URINE KETONE NEGATIVE (NEGATIVE); URINE LEUK ESTERASE NEGATIVE (NEGATIVE); URINE NITRITE NEGATIVE (NEGATIVE); URINE PROTEIN NEGATIVE (NEGATIVE); URINE UROBILINOGEN NEGATIVE E.U./dl (0.2-1.0)
[2016-08-25] MEDS: chlordiazePOXIDE HCL 25 MG CAPSULE PO SCH ×4 (05:41→22:39)
[2016-08-25] MEDS: PRENATAL VITAMINS W/ FOLIC ACID TABLET (FP) PO SCH (10:27)
[2016-08-25] MEDS: NICOTINE 14 MG/24 HOURS TOPICAL PATCH TD SCH (10:27)
[2016-08-25] MEDS: NICOTINE POLACRILEX 2 MG GUM BUC PRN ×4 (10:29→22:41)
--- NOTE | 2016-08-25 10:30 | PN ---
S CIWA - CIWA Score Nausea/Vomitin-No Nausea/No Vomiting Muscle Tremors: 4-Moderate,w/Arms Extend Anxiety: 3 Agitation: 3 Paroxysmal Sweats: 3 Orientation: 0-Oriented Tacttile Disturbances: 0-None Auditory Disturbances: 0-None Visual Disturbances: 0-None Headache: 1-Very Mild CIWA-Ar Total Score: 14 S Progress Note (SOAP) Subjective: sweats interrupted sleep agitation anxiety Objective: 08/25/16 10:29 Vital Signs Temperature 97.5 F L 08/25/16 06:00 Pulse Rate 76 08/25/16 06:00 Respiratory Rate 18 08/25/16 06:00 Blood Pressure 121/72 08/25/16 06:00 O2 Sat by Pulse Oximetry (%) Laboratory Tests 08/24/16 08/25/16 22:55 06:00 WBC 4.4 RBC 3.64 Hgb 12.5 D Hct 37.0 D MCV 101.5 H MCHC 33.8 RDW 15.1 Plt Count 306 D MPV 7.1 L Urine Color Straw Urine Appearance Clear Urine pH 6.0 Ur Specific [place] <= 1.005 Urine Protein Negative Urine Glucose (UA) Negative Urine Ketones Negative Urine Blood Negative Urine Nitrite Negative Urine Bilirubin Negative Urine Urobilinogen Negative Ur Leukocyte Esterase Negative labs pending awake/alert ambulating no acute distress Assessment: 08/25/16 10:30 withdrawal sx Plan: continue detox increase fluids labs pending
[2016-08-25 10:38] LABS: BILIRUBIN,TOTAL 0.3 mg/dL (0.2-1.0); CALCIUM 8.7 mg/dL (8.5-10.1); COCKROFT - GAULT 39.61; CREATININE 1.4 mg/dL (0.55-1.02); TOT PROT 7.3 g/dl (6.4-8.2)
--- NOTE | 2016-08-25 11:21 | EKG ---
Test Reason : Blood Pressure : / mmHG Vent. Rate : 065 BPM Atrial Rate : 065 BPM P-R Int : 172 ms QRS Dur : 066 ms QT Int : 426 ms P-R-T Axes : 051 049 061 degrees QTc Int : 443 ms NORMAL SINUS RHYTHM NORMAL ECG WHEN COMPARED WITH ECG OF 20-JUN-2016 20:08, NONSPECIFIC T WAVE ABNORMALITY NO LONGER EVIDENT IN ANTERIOR LEADS Confirmed by WILIAM HORNER MD ([id number]) on 08/25/2016 11:21:06 AM Referred By: Confirmed By:WILIAM HORNER MD
[2016-08-25] MEDS: hydrOXYzine PAMOATE 25 MG CAPSULE (FP) PO PRN ×3 (12:50→22:40)
[2016-08-25] MEDS: diphenhydrAMINE HCL 50 MG CAPSULE PO PRN (22:39)
[2016-08-25] MEDS: THIAMINE HCL 100 MG TABLET (FP) PO SCH (22:39)
[2016-08-26] MEDS: chlordiazePOXIDE HCL 25 MG CAPSULE PO SCH ×2 (06:43→11:01)
[2016-08-26] MEDS: NICOTINE POLACRILEX 2 MG GUM BUC PRN ×3 (06:46→14:23)
[2016-08-26] MEDS: NICOTINE 14 MG/24 HOURS TOPICAL PATCH TD SCH (11:01)
[2016-08-26] MEDS: PRENATAL VITAMINS W/ FOLIC ACID TABLET (FP) PO SCH (11:01)
[2016-08-26] MEDS: hydrOXYzine PAMOATE 25 MG CAPSULE (FP) PO PRN ×2 (14:23→22:38)
--- NOTE | 2016-08-26 15:09 | PN ---
S CIWA - CIWA Score Nausea/Vomitin Muscle Tremors: 3 Anxiety: 3 Agitation: 3 Paroxysmal Sweats: 1-Minimal Palms Moist Orientation: 0-Oriented Tacttile Disturbances: 1-Very Mild Itch/Numbness Auditory Disturbances: 1-Very Mild Visual Disturbances: 1-Very Mild Sensitivity Headache: 2-Mild CIWA-Ar Total Score: 18 S Progress Note (SOAP) Subjective: ALERT,IRRITABLE,ANXIOUS,INTERRUPTED SLEEP,TREMOR Objective: 08/26/16 15:13 Vital Signs Temperature 97.3 F L 08/26/16 14:40 Pulse Rate 94 H 08/26/16 14:40 Respiratory Rate 20 08/26/16 14:40 Blood Pressure 124/79 08/26/16 14:40 O2 Sat by Pulse Oximetry (%) Laboratory Last Values WBC 4.4 K/mm3 (4.0-10.0) 08/25/16 06:00 RBC 3.64 M/mm3 (3.60-5.2) 08/25/16 06:00 Hgb 12.5 GM/dL (10.7-15.3) D 08/25/16 06:00 Hct 37.0 % (32.4-45.2) D 08/25/16 06:00 MCV 101.5 fl (80-96) H 08/25/16 06:00 MCHC 33.8 g/dl (32.0-36.0) 08/25/16 06:00 RDW 15.1 % (11.6-15.6) 08/25/16 06:00 Plt Count 306 K/MM3 (134-434) D 08/25/16 06:00 MPV 7.1 fl (7.5-11.1) L 08/25/16 06:00 Sodium 135 mmol/L (136-145) L 08/25/16 06:00 Potassium 4.8 mmol/L (3.5-5.1) 08/25/16 06:00 Chloride 101 mmol/L (98-107) 08/25/16 06:00 Carbon Dioxide 24 mmol/L (21-32) 08/25/16 06:00 Anion Gap 10 (8-16) 08/25/16 06:00 BUN 36 mg/dL (7-18) H 08/25/16 06:00 Creatinine 1.4 mg/dL (0.55-1.02) H 08/25/16 06:00 Creat Clearance w eGFR 38.49 (>60) 08/25/16 06:00 Random Glucose 90 mg/dL (74-106) 08/25/16 06:00 Calcium 8.7 mg/dL (8.5-10.1) 08/25/16 06:00 Total Bilirubin 0.3 mg/dL (0.2-1.0) D 08/25/16 06:00 AST 40 U/L (15-37) H 08/25/16 06:00 ALT 37 U/L (12-78) D 08/25/16 06:00 Alkaline Phosphatase 125 U/L (45-117) H 08/25/16 06:00 Total Protein 7.3 g/dl (6.4-8.2) 08/25/16 06:00 Albumin 4.0 g/dl (3.4-5.0) 08/25/16 06:00 Urine Color Straw 08/24/16 22:55 Urine Appearance Clear 08/24/16 22:55 Urine pH 6.0 (5.0-8.0) 08/24/16 22:55 Ur Specific [place] <= 1.005 (1.005-1.025) 08/24/16 22:55 Urine Protein Negative (NEGATIVE) 08/24/16 22:55 Urine Glucose (UA) Negative (NEGATIVE) 08/24/16 22:55 Urine Ketones Negative (NEGATIVE) 08/24/16 22:55 Urine Blood Negative (NEGATIVE) 08/24/16 22:55 Urine Nitrite Negative (NEGATIVE) 08/24/16 22:55 Urine Bilirubin Negative (NEGATIVE) 08/24/16 22:55 Urine Urobilinogen Negative E.U./dl (0.2-1.0) 08/24/16 22:55 Ur Leukocyte Esterase Negative (NEGATIVE) 08/24/16 22:55 RPR Titer Nonreactive (NONREACTIVE) 08/25/16 06:00 Assessment: 08/26/16 15:14 WITHDRAWAL SYMPTOM Plan: CONTINUE DETOX,ENCOURAGE ORAL FLUID,REPEAT CMP IN AM
[2016-08-26] MEDS: chlordiazePOXIDE 5 MG CAPSULE PO SCH ×2 (17:46→22:36)
[2016-08-26] MEDS: THIAMINE HCL 100 MG TABLET (FP) PO SCH (22:36)
[2016-08-27] MEDS: chlordiazePOXIDE 5 MG CAPSULE PO SCH ×2 (05:57→10:28)
[2016-08-27 10:17] LABS: ALBUMIN 3.2 g/dl (3.4-5.0); BILIRUBIN,TOTAL 0.3 mg/dL (0.2-1.0); CALCIUM 8.8 mg/dL (8.5-10.1); COCKROFT - GAULT 55.505; TOT PROT 6.1 g/dl (6.4-8.2)
[2016-08-27] MEDS: NICOTINE 14 MG/24 HOURS TOPICAL PATCH TD SCH (10:28)
[2016-08-27] MEDS: PRENATAL VITAMINS W/ FOLIC ACID TABLET (FP) PO SCH (10:28)
[2016-08-27] MEDS: hydrOXYzine PAMOATE 25 MG CAPSULE (FP) PO PRN ×3 (10:30→22:35)
--- NOTE | 2016-08-27 11:59 | PN ---
S Progress Note (SOAP) Subjective: ALERT,IRRITABLE,ANXIOUS,INTERRUPTED SLEEP, Objective: 08/27/16 11:58 Vital Signs Temperature 97.3 F L 08/27/16 10:25 Pulse Rate 65 08/27/16 10:25 Respiratory Rate 20 08/27/16 10:25 Blood Pressure 139/85 08/27/16 10:25 O2 Sat by Pulse Oximetry (%) Laboratory Results - last 24 hr 08/27/16 07:30 Sodium 139 Potassium 4.8 Chloride 107 Carbon Dioxide 23 Anion Gap 9 BUN 28 H D Creatinine 1.0 D Creat Clearance w eGFR 56.75 Random Glucose 81 Calcium 8.8 Total Bilirubin 0.3 AST 60 H D ALT 52 D Alkaline Phosphatase 111 Total Protein 6.1 L Albumin 3.2 L Assessment: 08/27/16 11:59 WITHDRAWAL SYMPTOM Plan: CONTINUE DETOX,DISCHARGE IN AM
[2016-08-27] MEDS: chlordiazePOXIDE HCL 10 MG CAPSULE PO SCH ×2 (17:48→22:35)
[2016-08-27] MEDS: THIAMINE HCL 100 MG TABLET (FP) PO SCH (22:35)
[2016-08-27] MEDS: NICOTINE POLACRILEX 2 MG GUM BUC PRN (22:35)
[2016-08-28] MEDS: chlordiazePOXIDE HCL 10 MG CAPSULE PO SCH ×2 (06:06→10:49)
[2016-08-28 06:34] VITALS: BP 108/68; PULSE 65; TEMP 97.3
--- NOTE | 2016-08-28 09:00 | DS ---
[facility] Detox Discharge Summary Admission Date: 08/24/16 Discharge Date: 08/28/16 - History Present History: Alcohol Dependence - Physical Exam Results Vital Signs: Vital Signs Temperature 97.3 F L 08/28/16 06:00 Pulse Rate 65 08/28/16 06:00 Respiratory Rate 18 08/28/16 06:00 Blood Pressure 108/68 08/28/16 06:00 O2 Sat by Pulse Oximetry (%) - Treatment Hospital Course: Detox Protocol Followed, Detoxed Safely, Responded well, Discharged Condition Good - Medication Discharge Medications: Ambulatory Orders NK [No Known Home Medication] 03/01/16 - Diagnosis (1) Alcohol dependence with uncomplicated withdrawal Current Visit: Yes Status: Chronic (2) Nicotine dependence Current Visit: Yes Status: Chronic Qualifiers: Nicotine product type: cigarettes Substance use status: uncomplicated Qualified Code(s): F17.210 - Nicotine dependence, cigarettes, uncomplicated (3) Abrasion Current Visit: Yes Status: Acute (4) Syncope Current Visit: Yes Status: Suspected Qualifiers: Syncope type: unspecified Qualified Code(s): R55 - Syncope and collapse (5) Weight loss Current Visit: Yes Status: Chronic - AMA Did Patient Leave Against Medical Advice: No
[2016-08-28] MEDS: hydrOXYzine PAMOATE 25 MG CAPSULE (FP) PO PRN (09:17)
[2016-08-28] MEDS: PRENATAL VITAMINS W/ FOLIC ACID TABLET (FP) PO SCH (09:17)
[2016-08-28] MEDS: NICOTINE 14 MG/24 HOURS TOPICAL PATCH TD SCH (10:49)
== END 2016-08-28 11:03 | disposition home or self-care (01) | DRG 775 ==
LOC: YASAS 10:12 → Y6N 14:00
PROVIDERS: ADMIT Internal Medicine Addiction Medicine; ATTEND Internal Medicine Addiction Medicine
PROC: HZ2ZZZZ Detoxification Services for Substance Abuse Treatment (ICD-10-PCS; principal; 2016-08-28)
DX: F10.230 Alcohol dependence with withdrawal, uncomplicated (principal); F17.210 Nicotine dependence, cigarettes, uncomplicated; R55 Syncope and collapse; R63.4 Abnormal weight loss; Z68.25 Body mass index [BMI] 25.0-25.9, adult; L85.3 Xerosis cutis; Z59.0 Homelessness
CPT/HCPCS: 36415; 80053; 81003; 85027; 86593; 93005; 93010